=== PATIENT | female | born 1990 | race Caucasian/White ===

== ENCOUNTER 2017-11-05 14:42 | Emergency (ER) | payer SELFPAY ==
--- NOTE | 2017-11-05 15:03 | CPEKG ---
Heart Rate: 84 RR Interval: 714 P-R Interval: 112 QRSD Interval: 82 QT Interval: 352 QTC Interval: 417 P [place]: 40 QRS [place]: 83 T Wave [place]: 14 EKG Severity - OTHERWISE NORMAL ECG - EKG Impression: SINUS RHYTHM EKG Impression: ATRIAL PREMATURE COMPLEX Electronically Signed By: Antonette Oliva 05-Nov-2017 22:10:09
[2017-11-05] MEDS ORDERED: ASPIRIN 81 MG CHEWABLE TAB PO ONE (15:04)
[2017-11-05] MEDS ORDERED: NS 500 ML IV ONE (15:04)
[2017-11-05] MEDS ORDERED: KETOROLAC 30 MG/1 ML SDV IVP ONE (15:05)
--- NOTE | 2017-11-05 15:08 | EDPHY ---
H & P Time Seen by Provider: 11/05/17 14:57 HPI/ROS: CHIEF COMPLAINT: Chest pain HISTORY OF PRESENT ILLNESS: Patient is a 27-year-old female who presents to the emergency department with substernal chest pain x2 days. Patient's the pain started on Friday while snowboarding. She drank alcohol the night before so she thought that might have been related. However her pain persisted. She did not recall falling or injuring herself while snowboarding. Her pain does not radiate. She describes it as a heaviness. It is not pleuritic. No shortness of breath or cough. No fevers or chills. No leg pain or swelling. No family history of coronary did disease or clotting. REVIEW OF SYSTEMS: My complete review of systems is negative except as mentioned in the HPI. Past Medical/Surgical History: Negative Past surgical history: Negative Social history: The patient does not smoke cigarettes or THC. Smoking Status: Never smoked Physical Exam: Vitals noted GENERAL: Well-appearing, in no acute distress, alert. HEENT: Eyes normal to inspection, normal pharynx, no signs of dehydration. NECK: No thyromegaly, no lymphadenopathy, supple. RESPIRATORY: Clear to auscultation bilaterally, no rales, rhonchi or wheezing. CVS: Regular rate and rhythm, no rubs, murmurs, or gallops. Chest wall: No tenderness to palpation. ABDOMEN: Soft, nontender, nondistended, no organomegaly. BACK: Normal to inspection, no CVA tenderness. SKIN: Normal color, no rash, warm, dry. No pallor. EXTREMITIES: No pedal edema, no calf tenderness, no Homans sign or cords, no joint swelling. NEURO/PSYCH: Alert and oriented, normal mood and affect, normal motor sensory exam. Constitutional: Initial Vital Signs Temperature (C) 36.9 C 11/05/17 14:48 Heart Rate 83 11/05/17 14:48 Respiratory Rate 16 11/05/17 14:48 Blood Pressure 112/74 11/05/17 14:48 O2 Sat (%) 98 11/05/17 14:48 O2 Delivery Mode Room Air Allergies/Adverse Reactions: No Known Allergies Allergy (Unverified 11/05/17 14:48) Home Medications: Medication Instructions Recorded Aspirin 11/05/17 Medical Decision Making - Diagnostics Imaging Results: Imaging Impressions Chest X-Ray 11/05/17 15:04 Impression: No acute pulmonary disease. ED Course/Re-evaluation: In the emergency department I discussed possible etiologies with the patient. I answered all her questions. IV was placed. Laboratory studies EKG and chest x-ray were ordered. The patient was given normal saline 500 mL IV for hydration. She was given aspirin 324 mg for pain. She was also given Toradol 30 mg IV for pain. Sinus rhythm at 84. Normal axis. Normal intervals. Small S1, q.3h, T3. Atrial premature complex. Patient's chemistry panel and CBC were normal. Troponin was negative. D-dimer negative. Rechecked the patient. She still had some subtle substernal chest discomfort after the Toradol. She was given a GI cocktail. On recheck the patient's symptoms had resolved. She has no chest pain. She feels well. I gave her warnings prior to leaving. She will return with worsening symptoms. Differential Diagnosis: My differential includes but is not limited to ACS, acute RI, PE, pleurisy, costochondritis, myocarditis, pericarditis, GERD, reflux - Data Points Laboratory Results: Laboratory Results 11/05/17 15:00 11/05/17 15:00 11/05/17 11/05/17 11/05/17 15:00 15:00 15:00 WBC RBC Hgb Hct MCV MCH MCHC RDW Plt Count MPV Neut % (Auto) Lymph % (Auto) [place] % (Auto) Eos % (Auto) Baso % (Auto) Nucleat RBC Rel Count Absolute Neuts (auto) Absolute Lymphs (auto) Absolute Monos (auto) Absolute Eos (auto) Absolute Basos (auto) Absolute Nucleated RBC Immature Gran % Immature Gran # D-Dimer < 0.27 ug/mLFEU ug/mLFEU (0.00-0.50) Sodium 140 mEq/L mEq/L (135-145) Potassium 3.8 mEq/L mEq/L (3.5-5.2) Chloride 103 mEq/L mEq/L (97-110) Carbon Dioxide 25 mEq/l mEq/l (22-31) Anion Gap 12 mEq/L mEq/L (8-16) BUN 11 mg/dL mg/dL (7-23) Creatinine 0.7 mg/dL mg/dL (0.6-1.0) Estimated GFR > 60 Glucose 94 mg/dL mg/dL (70-100) Calcium 9.2 mg/dL mg/dL (8.5-10.4) Total Bilirubin 0.5 mg/dL mg/dL (0.1-1.4) Conjugated Bilirubin 0.4 mg/dL mg/dL (0.0-0.5) Unconjugated Bilirubin 0.1 mg/dL mg/dL (0.0-1.1) AST 27 IU/L IU/L (14-46) ALT 38 IU/L IU/L (9-52) Alkaline Phosphatase 121 IU/L IU/L (38-126) Troponin I < 0.012 ng/mL ng/mL (0.000-0.034) Total Protein 7.5 g/dL g/dL (6.3-8.2) Albumin 4.5 g/dL g/dL (3.5-5.0) Lipase 159 IU/L IU/L (23-300) Beta HCG, Qual NEGATIVE 11/05/17 15:00 WBC 8.27 10^3/uL 10^3/uL (3.80-9.50) RBC 4.75 10^6/uL 10^6/uL (4.18-5.33) Hgb 14.4 g/dL g/dL (12.6-16.3) Hct 43.2 % % (38.0-47.0) MCV 90.9 fL fL (81.5-99.8) MCH 30.3 pg pg (27.9-34.1) MCHC 33.3 g/dL g/dL (32.4-36.7) RDW 12.5 % % (11.5-15.2) Plt Count 305 10^3/uL 10^3/uL (150-400) MPV 9.5 fL fL (8.7-11.7) Neut % (Auto) 56.4 % % (39.3-74.2) Lymph % (Auto) 34.5 % % (15.0-45.0) [place] % (Auto) 5.9 % % (4.5-13.0) Eos % (Auto) 1.6 % % (0.6-7.6) Baso % (Auto) 1.2 % % (0.3-1.7) Nucleat RBC Rel Count 0.0 % % (0.0-0.2) Absolute Neuts (auto) 4.67 10^3/uL 10^3/uL (1.70-6.50) Absolute Lymphs (auto) 2.85 10^3/uL 10^3/uL (1.00-3.00) Absolute Monos (auto) 0.49 10^3/uL 10^3/uL (0.30-0.80) Absolute Eos (auto) 0.13 10^3/uL 10^3/uL (0.03-0.40) Absolute Basos (auto) 0.10 10^3/uL 10^3/uL (0.02-0.10) Absolute Nucleated RBC 0.00 10^3/uL 10^3/uL (0-0.01) Immature Gran % 0.4 % % (0.0-1.1) Immature Gran # 0.03 10^3/uL 10^3/uL (0.00-0.10) D-Dimer Sodium Potassium Chloride Carbon Dioxide Anion Gap BUN Creatinine Estimated GFR Glucose Calcium Total Bilirubin Conjugated Bilirubin Unconjugated Bilirubin AST ALT Alkaline Phosphatase Troponin I Total Protein Albumin Lipase Beta HCG, Qual Medications Given: Discontinued Medications Al Hydroxide/Mg Hydroxide (Maalox Susp) 30 ml PO ONCE ONE Stop: 11/05/17 16:04 Last Admin: 11/05/17 16:06 Dose: 30 ml Aspirin (Aspirin) 324 mg PO EDNOW ONE Stop: 11/05/17 15:05 Last Admin: 11/05/17 15:11 Dose: 324 mg Hyoscyamine Sulfate (Levsin, Hyomax-Sl) 0.25 mg PO ONCE ONE Stop: 11/05/17 16:04 Last Admin: 11/05/17 16:06 Dose: 0.25 mg Sodium Chloride (Ns) 500 mls @ 1,000 mls/hr IV EDNOW ONE PRN Reason: Protocol Stop: 11/05/17 15:33 Last Admin: 11/05/17 15:14 Dose: 500 mls Ketorolac Tromethamine (Toradol) 30 mg IVP EDNOW ONE Stop: 11/05/17 15:06 Last Admin: 11/05/17 15:14 Dose: 30 mg Lidocaine (Lidocaine 2% Viscous) 15 ml PO ONCE ONE Stop: 11/05/17 16:04 Last Admin: 11/05/17 16:06 Dose: 15 ml Departure - Departure Disposition: Home, Routine, Self-Care Clinical Impression: Chest pain Qualifiers: Chest pain type: other chest pain Qualified Code(s): R07.89 - Other chest pain Condition: Good Instructions: Chest Pain (ED) Additional Instructions: Return with increasing chest pain, increasing shortness of breath, fever or any other concerns. Referrals: Rc Adame MD [place] [place] - 3-4 days, if not improved
[2017-11-05 15:12] LABS: PLATELET COUNT 305 10^3/uL (150-400)
[2017-11-05] MEDS ORDERED: HYOSCYAMINE SULFATE 0.125 MG TAB PO ONE (16:03)
[2017-11-05] MEDS ORDERED: LIDOCAINE 2% VISCOUS 15 ML UDCUP PO ONE (16:03)
[2017-11-05] MEDS ORDERED: MAG HYDROX/AL HYDROX/SIMETH 30 ML UDCUP PO ONE (16:03)
[2017-11-05 16:57] VITALS: BP 106/78
== END 2017-11-05 16:56 | disposition home or self-care (01) ==
DX: R07.89 Other chest pain (principal); E86.9 Volume depletion, unspecified; Z79.82 Long term (current) use of aspirin
CPT/HCPCS: 96374; J1885